=== PATIENT | male | born 1985 | race Two or more races ===

== ENCOUNTER 2016-11-10 21:23 | Emergency (ER) | payer SELFPAY ==
[~2016-11-10] VITALS: Ht 172.7 cm; Wt 102.8 kg
[2016-11-10 21:33] VITALS: BP 124/86
== END 2016-11-10 22:44 ==
LOC: ED 22:15
DX: J01.00 Acute maxillary sinusitis, unspecified (principal); J01.10 Acute frontal sinusitis, unspecified
CPT/HCPCS: 99283

== ENCOUNTER 2017-03-12 08:21 | Emergency (ER) | payer SELFPAY ==
[~2017-03-12] VITALS: Ht 172.7 cm; Wt 100.3 kg
[2017-03-12 08:22] VITALS: BP 152/104
[2017-03-12] MEDS ORDERED: METHOCARBAMOL 750 MG TABLET PO ONE (09:00)
[2017-03-12] MEDS ORDERED: KETOROLAC 30 MG/1 ML IM ONE (09:00)
[2017-03-12 09:33] LABS: HEMOGLOBIN 15.8 g/dL (13.7-18.0); WHITE BLOOD COUNT 8.8 x10^3/uL (3.4-10)
[2017-03-12] MEDS ORDERED: METHOCARBAMOL 750 MG TABLET ONE (09:33)
[2017-03-12] MEDS ORDERED: KETOROLAC 30 MG/1 ML ONE (09:33)
[2017-03-12 09:42] LABS: BLOOD UREA NITROGEN 14 mg/dL (7-18)
== END 2017-03-12 10:28 | disposition home or self-care (01) ==
LOC: ED 08:56
DX: M54.2 Cervicalgia (principal); M79.672 Pain in left foot; F17.210 Nicotine dependence, cigarettes, uncomplicated
CPT/HCPCS: 36415; 72050; 73630; 80048; 82040; 85025; 93005; 96372; 99285; J1885

== ENCOUNTER 2017-12-23 16:15 | Emergency (ER) | payer SELFPAY ==
[~2017-12-23] VITALS: Ht 170.2 cm; Wt 91.2 kg
[2017-12-23 17:16] LABS: BASOPHILS # (AUTO) 0.06 x10^3/uL (0-0.1); BASOPHILS % (AUTO) 1 % (0-1); EOSINOPHILS # (AUTO) 0.19 x10^3/uL (0-0.4); EOSINOPHILS % (AUTO) 2 % (1-7); LYMPHOCYTES # (AUTO) 4.07 x10^3/uL (1-3.4); LYMPHOCYTES % (AUTO) 39 % (22-44); MD NO; MEAN CORPUSCULAR HEMOGLOBIN 29.4 pg (27.5-34.5); MEAN CORPUSCULAR HGB CONC 33.5 g/dL (33.2-36.2); MEAN CORPUSCULAR VOLUME 87.9 fL (81-97); MEAN PLATELET VOLUME 8.4 fL (7.4-10.4); MONOCYTES # (AUTO) 0.81 x10^3/uL (0.2-0.8); MONOCYTES % (AUTO) 8 % (2-9); NEUTROPHILS % (AUTO) 51 % (42-75); PLATELET COUNT 323 x10^3/uL (130-400)
[2017-12-23 17:27] LABS: CALCIUM 8.9 mg/dL (8.5-10.1); CHLORIDE 108 mmol/L (98-107)
[2017-12-23 17:35] LABS: ALANINE AMINOTRANSFERASE 103 U/L (12-78); ALBUMIN 4.2 g/dL (3.4-5.0); ALKALINE PHOSPHATASE 81 U/L (45-117); ANION GAP 7 mmol/L (5-15); BILIRUBIN,TOTAL 0.6 mg/dL (0.2-1.0); TOTAL PROTEIN 7.7 g/dL (6.4-8.2); TROPONIN I < 0.015 ng/mL (0.000-0.045)
[2017-12-23 20:25] VITALS: BP 115/77
== END 2017-12-23 20:38 | disposition home or self-care (01) ==
LOC: ED 20:19
DX: R07.89 Other chest pain (principal); R00.2 Palpitations
CPT/HCPCS: 36415; 71045; 80053; 84443; 84484; 85025; 93005; 99285

== ENCOUNTER 2020-11-18 00:29 | Emergency (ER) | payer SELFPAY ==
[~2020-11-18] VITALS: Ht 172.7 cm; Wt 88.9 kg
--- NOTE | 2020-11-18 02:56 | NUR ---
pt states he feels SOB, pt has wheezing, pt does not have a history of asthma but does have a family history of it, all needs in reach, call light in reach, NAD, pulse ox is 98% on room air
--- NOTE | 2020-11-18 04:13 | NUR ---
pt asleep in bed, all needs in reach, call light in reach, NAD
[2020-11-18 04:37] VITALS: BP 122/84
== END 2020-11-18 04:39 | disposition home or self-care (01) ==
LOC: ED 00:59
DX: R06.00 Dyspnea, unspecified (principal); R05 Cough; R07.89 Other chest pain; Z87.891 Personal history of nicotine dependence
CPT/HCPCS: 71045; 99283

== ENCOUNTER 2020-11-19 10:12 | Emergency (ER) | payer OTHER ==
[~2020-11-19] VITALS: Ht 172.7 cm; Wt 85.6 kg
[2020-11-19] MEDS ORDERED: SODIUM CHLORIDE FLUSH 10ML SYR IVF ONE (11:00)
[2020-11-19] MEDS ORDERED: KETOROLAC 30 MG/1 ML IVPush ONE (11:00)
[2020-11-19] MEDS ORDERED: ONDANSETRON 2MG/ML, 2ML IVPush ONE (11:00)
[2020-11-19] MEDS ORDERED: KETOROLAC 30 MG/1 ML ONE (11:07)
[2020-11-19] MEDS ORDERED: ONDANSETRON 2MG/ML, 2ML ONE (11:07)
[2020-11-19 11:20] LABS: BASOPHILS % (AUTO) 1 % (0-1); EOSINOPHILS % (AUTO) 3 % (1-7); LYMPHOCYTES % (AUTO) 15 % (22-44); MEAN CORPUSCULAR HEMOGLOBIN 29.9 pg (27.5-34.5); MEAN CORPUSCULAR HGB CONC 34.1 g/dL (33.2-36.2); MEAN PLATELET VOLUME 8.1 fL (7.4-10.4); MONOCYTES % (AUTO) 5 % (2-9); NEUTROPHILS % (AUTO) 75 % (42-75); PLATELET COUNT 316 x10^3/uL (130-400); RED BLOOD COUNT 5.09 x10^6/uL (4.38-5.82); RED CELL DISTRIBUTION WIDTH 13.5 % (9.4-14.8)
[2020-11-19 11:28] LABS: ALBUMIN 4.3 g/dL (3.4-5.0); ANION GAP 6 mmol/L (5-15); CALCIUM 8.9 mg/dL (8.5-10.1); CHLORIDE 112 mmol/L (98-107); CREATININE 1.21 mg/dL (0.7-1.3)
--- NOTE | 2020-11-19 11:36 | NUR ---
PT BIB SISTER VIA POV. PER PT HE HAS C/O RIGHT FLANK PAIN THAT RADIATES TO HIS RLQ, PT STATES THIS PAIN HAD ONSET X 1 HR AGO. PIV PLACED. PT MEDICATED PER EMAR. AWAITING ABD CT RESULTS AT THIS TIME. PT STATING HE IS UNABLE TO PROVIDE URINE SAMPLE AT THIS TIME. PT RESTING IN [facility], MONITORING IN PLACE, PT STATING PAIN IS STILL 10/10, WCTM.
[2020-11-19 12:00] LABS: MD SCAN
[2020-11-19] MEDS ORDERED: MORPHINE SULFATE 4 MG/ML, 1ML ONE ×2 (12:10→12:51)
[2020-11-19] MEDS: MORPHINE SULFATE 4 MG/ML, 1ML IVPush PRN ×2 (12:12→12:53)
--- NOTE | 2020-11-19 12:24 | NUR ---
BLADDER SCAN AT THIS TIME. 24ML. DR. VARGAS AWARE, ORDER FOR IVF BOLUS. PT MEDICATED PER EMAR.
[2020-11-19] MEDS ORDERED: SODIUM CHLORIDE 0.9% 1,000ML IVBOLUS ONE (12:30)
[2020-11-19] MEDS ORDERED: HYDROmorphone 1 MG/ML, 1ML INJ ONE (14:50)
[2020-11-19 14:58] LABS: MICROSCOPIC INDICATED
[2020-11-19] MEDS ORDERED: HYDROmorphone 1 MG/ML, 1ML INJ IV ONE (15:00)
[2020-11-19 15:41] VITALS: BP 141/74
== END 2020-11-19 15:43 | disposition home or self-care (01) ==
LOC: ED 10:36
DX: N20.2 Calculus of kidney with calculus of ureter (principal); R10.9 Unspecified abdominal pain
CPT/HCPCS: 36415; 74176; 80048; 81001; 82040; 85025; 96361; 96374; 96375; 96376; 99284; J1170; J1885; J2270; J2405; J7030